=== PATIENT | male | born 1970 | race Caucasian/White ===

== ENCOUNTER 2023-08-07 09:12 | Observation (INO) | payer BC, OTHER ==
[~2023-08-07] VITALS: Ht 182.9 cm; Wt 110.2 kg
[2023-08-07 09:58] LABS: ALBUMIN 3.5 g/dL (3.5-5.0); BILIRUBIN,TOTAL 0.2 mg/dL (0.2-1.0); POTASSIUM 4.7 mmol/L (3.5-5.1); TOTAL PROTEIN, SERUM 6.3 g/dL (6.0-8.3)
[2023-08-07 10:24] LABS: HEMATOCRIT 34.5 % (42-54); MEAN CORPUSCULAR HEMOGLOBIN 32.2 pg (27.0-33.0); MEAN CORPUSCULAR HGB CONC 33.9 g/dL (32.0-36.0); PLATELET COUNT (AUTO) 244 K/uL (130-400); RED BLOOD CELL COUNT(AUTO) 3.63 MIL/uL (4.50-6.20); RED CELL DISTRIBUTION WIDTH 12.8 % (11.0-15.5); WHITE BLOOD COUNT (AUTO) 6.3 K/uL (4.8-10.8)
[2023-08-07 11:17] LABS: EOSINOPHILS % (MANUAL) 1 % (1-6); LYMPHOCYTES % (MANUAL) 23 % (22-44); MAN.DIFF COMMENT-IMPRESSION MANUAL DIFFERENTIAL; MONOCYTES % (MANUAL) 3 % (2-9); PLATELET MORPHOLOGY COMMENT ADEQUATE; SEGMENTED NEUTROPHILS % 73 % (40-70); TOTAL CELLS COUNTED 100
[2023-08-07] MEDS ORDERED: 0.9%NACL 1000ML 1,000 ML IV SCH (11:30)
[2023-08-07] MEDS ORDERED: LACTULOSE 20 GM/30 ML UDCUP PO PRN (17:30)
[2023-08-07] MEDS ORDERED: ONDANSETRON 4MG INJ IV PRN (17:30)
[2023-08-07] MEDS ORDERED: MAG/ALUM/SIMETH 30 ML UDCUP PO PRN (17:30)
[2023-08-07] MEDS ORDERED: HYDRALAZINE 20MG/ML VIAL IV PRN (17:30)
[2023-08-07] MEDS ORDERED: ACETAMINOPHEN 325 MG TAB PO PRN (17:30)
[2023-08-07] MEDS ORDERED: GUAIFENESIN-DM 200/20 MG 10 ML PO PRN (17:30)
[2023-08-07] MEDS ORDERED: ACETAMINOPHEN WITH CODEINE 1 TAB TAB PO PRN (17:30)
[2023-08-07] MEDS ORDERED: NITROGLYCERIN 0.4 MG SL TAB SL PRN (17:30)
[2023-08-07] MEDS ORDERED: DIPHENHYDRAMINE HCL 25 MG CAPSULE PO PRN (17:30)
[2023-08-07 18:25] VITALS: BP 125/80; PULSE 72; RESP 18
[2023-08-07] MEDS: INSULIN HUMULIN R 100 UNIT/ML 3ML SQ SCH (19:54)
[2023-08-07] MEDS: FAMOTIDINE 20MG VIAL IV SCH (20:28)
[2023-08-07 20:35] VITALS: BP 105/69; PULSE 69; RESP 19
[2023-08-07 22:34] VITALS: O2SAT 97
[2023-08-08] VITALS (11 sets, daily range): BP systolic 119–140; BP diastolic 76–88; PULSE 58–71; RESP 17–19; O2SAT 96–99
[2023-08-08] MEDS: INSULIN HUMULIN R 100 UNIT/ML 3ML SQ SCH ×4 (06:14→20:27)
[2023-08-08] MEDS: FAMOTIDINE 20MG VIAL IV SCH ×2 (08:50→20:27)
[2023-08-08] MEDS: ENOXAPARIN SODIUM 40 MG/0.4 ML SYRINGE SQ SCH (08:52)
[2023-08-08 11:17] LABS: THYROID STIMULATING HORMONE 1.2 uIU/mL (0.36-3.74)
[2023-08-08] MEDS ORDERED: ISOS20TA85 PO (14:28)
[2023-08-08] MEDS ORDERED: FENO145T26 PO (14:28)
[2023-08-08] MEDS ORDERED: METO-408 PO (14:28)
[2023-08-08] MEDS ORDERED: RANO500T2 PO (14:28)
[2023-08-08] MEDS ORDERED: FLUO40CA49 PO (14:28)
[2023-08-08] MEDS ORDERED: CETI-89 PO (14:28)
[2023-08-08] MEDS ORDERED: ASPI-888 PO (14:28)
[2023-08-08] MEDS ORDERED: LISI10TA24 PO (14:28)
[2023-08-09 03:59] VITALS: BP 106/71; PULSE 62; RESP 17
[2023-08-09 05:24] LABS: BASOPHILS # (AUTO) 0.03 K/uL (0.00-0.20); BASOPHILS % (AUTO) 0.7 % (0.0-5.0); EOSINOPHILS # (AUTO) 0.19 K/uL (0.00-0.70); EOSINOPHILS % (AUTO) 4.1 % (0.0-8.0); HEMATOCRIT 38.9 % (42-54); IMMATURE GRANULOCYTE ABSOLUTE 0.02 K/uL (0-1); LYMPHOCYTES # (AUTO) 1.6 K/uL (1.0-4.8); LYMPHOCYTES % (AUTO) 33.7 % (21.0-51.0); MEAN CORPUSCULAR HEMOGLOBIN 31.3 pg (27.0-33.0); MEAN CORPUSCULAR HGB CONC 32.1 g/dL (32.0-36.0); MEAN CORPUSCULAR VOLUME 97.3 fL (79-99); MONOCYTES # (AUTO) 0.4 K/uL (0.1-1.0); MONOCYTES % (AUTO) 9.6 % (3.0-13.0); NEUTROPHILS # (AUTO) 2.4 K/uL (1.8-7.7); NEUTROPHILS % (AUTO) 51.5 % (40.0-77.0); PLATELET COUNT (AUTO) 226 K/uL (130-400); RED CELL DISTRIBUTION WIDTH 12.8 % (11.0-15.5); WHITE BLOOD COUNT (AUTO) 4.6 K/uL (4.8-10.8)
[2023-08-09 05:39] LABS: CREATININE 1.1 mg/dL (0.5-1.5); POTASSIUM 4.3 mmol/L (3.5-5.1)
[2023-08-09] MEDS: INSULIN HUMULIN R 100 UNIT/ML 3ML SQ SCH ×2 (06:40→11:30)
[2023-08-09] MEDS ORDERED: RANOLAZINE 500 MG TAB.SR.12H PO SCH (07:00)
[2023-08-09 08:00] VITALS: BP 122/75; PULSE 60; RESP 18; O2SAT 96
[2023-08-09] MEDS ORDERED: CETIRIZINE HCL 5 MG TABLET PO SCH (09:00)
[2023-08-09] MEDS ORDERED: FENOFIBRATE NANOCRYSTALLIZED 145 MG TAB PO SCH (09:00)
[2023-08-09] MEDS ORDERED: METOPROLOL SUCCINATE 25 MG TAB.SR.24H PO SCH (09:00)
[2023-08-09] MEDS ORDERED: FLUOXETINE HCL 20 MG CAPSULE PO SCH (09:00)
[2023-08-09] MEDS ORDERED: ISOSORBIDE MONONITRATE 20 MG TABLET PO SCH (09:00)
[2023-08-09] MEDS ORDERED: ASPIRIN 81 MG EC TAB PO SCH (09:00)
[2023-08-09] MEDS: ENOXAPARIN SODIUM 40 MG/0.4 ML SYRINGE SQ SCH (09:28)
[2023-08-09] MEDS: FAMOTIDINE 20MG VIAL IV SCH (09:30)
[2023-08-09 12:00] VITALS: BP 96/61; PULSE 64; RESP 16
== END 2023-08-09 13:30 | disposition home or self-care (01) ==
LOC: EDH 09:12 → EDHIP 17:07 → UNDOADMOB 17:14 → INTOOBSV 17:14 → EDHIP 17:14 → 3AH 17:50 → EDHIP 17:50
PROVIDERS: ADMIT Hospitalist; ATTEND Hospitalist
DX: I25.110 Atherosclerotic heart disease of native coronary artery with unstable angina pectoris (principal); E11.9 Type 2 diabetes mellitus without complications; I10 Essential (primary) hypertension; I35.0 Nonrheumatic aortic (valve) stenosis; I45.9 Conduction disorder, unspecified; Q33.3 Agenesis of lung; I25.2 Old myocardial infarction; Z79.899 Other long term (current) drug therapy; Z88.0 Allergy status to penicillin
CPT/HCPCS: 96374; 99285; 84484 ×5; 80053; 85025 ×2; 82948 ×8; 36415 ×3; 71045; 93005 ×2; 96376 ×2; 96372 ×2; 84443; 80061; 93306; 93356; 83735; 80048; G0378 ×43; J3490 ×4; J1650 ×2